=== PATIENT | female | born 1995 | race Caucasian/White ===

== ENCOUNTER 2022-11-02 10:16 | Inpatient (IN) | payer MEDICAID ==
[~2022-11-02] VITALS: Ht 154.9 cm; Wt 70.3 kg
[2022-11-02 10:38] VITALS: BP 123/72; PULSE 105; RESP 18; TEMP 98; O2SAT 99
[2022-11-02 10:55] VITALS: O2SAT 99
[2022-11-02] MEDS ORDERED: ACETAMINOPHEN EXTRA STRENGTH 500 MG TAB PO ONE (11:15)
[2022-11-02] MEDS ORDERED: NACL 0.9% 1,000 ML IV ONE (11:30)
[2022-11-02] MEDS ORDERED: ONDANSETRON 4 MG/2 ML VIAL IVP ONE (11:30)
[2022-11-02 11:37] LABS: BASOPHILS % (AUTO) 0.1 % (0.0-2.0); EOSINOPHILS % (AUTO) 0.8 % (0.0-4.0); HEMATOCRIT 32.8 % (36-48); HEMOGLOBIN 11.2 g/dL (12.0-16.0); LYMPHOCYTES # (AUTO) 1.3 K/uL (2.5-16.5); LYMPHOCYTES % (AUTO) 23.1 % (20.5-51.1); MEAN CORPUSCULAR HEMOGLOBIN 28 pg (27-31); MEAN CORPUSCULAR HGB CONC 34 g/dL (33-37); MEAN CORPUSCULAR VOLUME 82.5 fL (80-94); MONOCYTES # (AUTO) 0.4 K/uL (0.8-1.0); MONOCYTES % (AUTO) 7.7 % (1.7-9.3); NEUTROPHILS # (AUTO) 3.7 K/uL (1.8-7.7); NEUTROPHILS % (AUTO) 68.3 % (42.2-75.2); PLATELET COUNT (AUTO) 196 K/uL (140-450); RED BLOOD CELL COUNT(AUTO) 3.98 MIL/uL (4.20-5.40); RED CELL DISTRIBUTION WIDTH 14.9 % (11.6-13.7); WHITE BLOOD COUNT (AUTO) 5.4 K/uL (4.8-10.8)
[2022-11-02 12:50] VITALS: O2SAT 100
[2022-11-02] MEDS ORDERED: KETOROLAC 30 MG/ML VIAL IVP ONE (13:25)
[2022-11-02] MEDS ORDERED: MISOPROSTOL 200 MCG TAB PO ONE (14:40)
[2022-11-02 15:46] VITALS: O2SAT 96
[2022-11-02] MEDS: MIDODRINE 5 MG TAB PO SCH ×2 (16:36→19:40)
[2022-11-02] MEDS ORDERED: MORPHINE SULFATE 4 MG/ML SYR IVP PRN (17:00)
[2022-11-02] MEDS ORDERED: LORazepam 1 MG TAB PO PRN (17:00)
[2022-11-02] MEDS ORDERED: ONDANSETRON 4 MG/2 ML VIAL IVP PRN (17:00)
[2022-11-02] MEDS ORDERED: ACETAMINOPHEN 325 MG TAB PO PRN (17:00)
[2022-11-02] MEDS ORDERED: POTASSIUM CHLORIDE 10 MEQ TABER PO PRN (17:00)
[2022-11-02] MEDS ORDERED: ZOLPIDEM 5 MG TAB PO PRN (17:00)
[2022-11-02] MEDS ORDERED: MAG SULF 2000 MG/WATER PREMIX 50 ML IV PRN (17:00)
[2022-11-02] MEDS ORDERED: KCL 20 MEQ IN 100 mL PREMIX 200 ML IV PRN (17:00)
[2022-11-02] MEDS ORDERED: HYDROcodone/APAP 5/325 MG 1 TAB TAB PO PRN (17:00)
[2022-11-02] MEDS ORDERED: cefTRIAXone 1,000 MG VIAL ONE (17:15)
[2022-11-02] MEDS: NACL 0.9% 1,000 ML IV SCH (17:21)
[2022-11-02 20:50] VITALS: BP 97/30; PULSE 72; PULSE 86; RESP 20; TEMP 97.7; O2SAT 98
[2022-11-02 21:26] LABS: BILIRUBIN,URINE NEGATIVE (NEGATIVE); BLOOD, URINE 3+ (NEGATIVE); LEUKOCYTE ESTERASE ,URINE TRACE (NEGATIVE); NITRITE, URINE POSITIVE (NEGATIVE); PH,URINE 8.5 (5.0-9.0); PROTEIN,URINE 2+ (NEGATIVE); UGLUCOSE NEGATIVE (NEGATIVE)
[2022-11-02 21:41] LABS: APPEARANCE,URINE BLOODY (CLEAR); BACTERIA,URINE FEW /HPF (None Seen); COLOR,URINE RED (YELLOW); RBC,URINE 20-50 /HPF (0-5); SQUAMOUS EPITHELIAL CELL,UR 0-3 (FEW) /LPF (0-3 (FEW)); WBC,URINE 0-5 /HPF (0-5)
[2022-11-03] VITALS: BP 94/44; PULSE 59; PULSE 65; RESP 18; TEMP 96.8; O2SAT 98
[2022-11-03 04:00] VITALS: BP 98/46; PULSE 68; PULSE 71; RESP 18; TEMP 97; O2SAT 99
[2022-11-03 04:55] LABS: BASOPHILS % (AUTO) 0.2 % (0.0-2.0); EOSINOPHILS # (AUTO) 0.1 K/uL (0-0.4); EOSINOPHILS % (AUTO) 1.6 % (0.0-4.0); HEMATOCRIT 25.3 % (36-48); HEMOGLOBIN 8.7 g/dL (12.0-16.0); LYMPHOCYTES # (AUTO) 1.6 K/uL (2.5-16.5); LYMPHOCYTES % (AUTO) 33.7 % (20.5-51.1); MEAN CORPUSCULAR HEMOGLOBIN 28 pg (27-31); MEAN CORPUSCULAR HGB CONC 34 g/dL (33-37); MEAN CORPUSCULAR VOLUME 82.5 fL (80-94); MONOCYTES # (AUTO) 0.4 K/uL (0.8-1.0); MONOCYTES % (AUTO) 7.3 % (1.7-9.3); NEUTROPHILS # (AUTO) 2.8 K/uL (1.8-7.7); NEUTROPHILS % (AUTO) 57.2 % (42.2-75.2); PLATELET COUNT (AUTO) 152 K/uL (140-450); RED BLOOD CELL COUNT(AUTO) 3.07 MIL/uL (4.20-5.40); WHITE BLOOD COUNT (AUTO) 4.9 K/uL (4.8-10.8)
[2022-11-03 05:12] LABS: ANION GAP 10.8 (8-16); CALCIUM 7.6 mg/dL (8.5-10.1); CARBON DIOXIDE 23.1 mmol/L (21-32); CREATININE 0.5 mg/dL (0.6-1.3); POTASSIUM 3.9 mmol/L (3.5-5.1)
[2022-11-03] MEDS: NACL 0.9% 1,000 ML IV SCH ×2 (05:30→18:00)
[2022-11-03] MEDS: MIDODRINE 5 MG TAB PO SCH ×3 (06:32→19:36)
[2022-11-03 08:00] VITALS: BP 98/52; PULSE 64; PULSE 72; RESP 20; TEMP 97.5; O2SAT 100
[2022-11-03 12:00] VITALS: BP 102/48; PULSE 79; RESP 18; TEMP 97.6; O2SAT 99
[2022-11-03 16:00] VITALS: BP 96/46; PULSE 67; RESP 18; TEMP 98.3; O2SAT 100
[2022-11-03 20:00] VITALS: BP 122/61; PULSE 68; RESP 18; TEMP 98.9; O2SAT 99
[2022-11-04] MEDS: MISOPROSTOL 200 MCG TAB ONE ×2 (00:16→04:41)
[2022-11-04] MEDS: MISOPROSTOL 200 MCG TAB PO SCH ×6 (00:21→20:00)
[2022-11-04] MEDS: IBUPROFEN 400 MG TAB PO SCH ×6 (00:24→20:39)
[2022-11-04] MEDS: NACL 0.9% 1,000 ML IV SCH ×2 (01:42→19:00)
[2022-11-04 04:00] VITALS: BP 102/58; PULSE 75; RESP 18; TEMP 97.8; O2SAT 97
[2022-11-04 05:07] LABS: ANION GAP 10.3 (8-16); CARBON DIOXIDE 25.2 mmol/L (21-32); CREATININE 0.6 mg/dL (0.6-1.3); POTASSIUM 3.5 mmol/L (3.5-5.1)
[2022-11-04 05:10] LABS: BASOPHILS % (AUTO) 0.1 % (0.0-2.0); EOSINOPHILS # (AUTO) 0.1 K/uL (0-0.4); HEMATOCRIT 24.8 % (36-48); HEMOGLOBIN 8.5 g/dL (12.0-16.0); LYMPHOCYTES # (AUTO) 1.2 K/uL (2.5-16.5); LYMPHOCYTES % (AUTO) 21.5 % (20.5-51.1); MEAN CORPUSCULAR HEMOGLOBIN 28 pg (27-31); MEAN CORPUSCULAR HGB CONC 34 g/dL (33-37); MEAN CORPUSCULAR VOLUME 82.2 fL (80-94); MONOCYTES # (AUTO) 0.4 K/uL (0.8-1.0); MONOCYTES % (AUTO) 6.6 % (1.7-9.3); NEUTROPHILS # (AUTO) 3.9 K/uL (1.8-7.7); NEUTROPHILS % (AUTO) 70.8 % (42.2-75.2); PLATELET COUNT (AUTO) 154 K/uL (140-450); RED BLOOD CELL COUNT(AUTO) 3.02 MIL/uL (4.20-5.40); WHITE BLOOD COUNT (AUTO) 5.6 K/uL (4.8-10.8)
[2022-11-04] MEDS: MIDODRINE 5 MG TAB PO SCH ×3 (06:38→19:00)
[2022-11-04 08:00] VITALS: BP 97/45; PULSE 75; RESP 17; TEMP 97.2; O2SAT 98; O2SAT 99
[2022-11-04] MEDS ORDERED: MAG SULF 2000 MG/WATER PREMIX 50 ML IV SCH (10:00)
[2022-11-04] MEDS ORDERED: DESFLURANE 240 ML BTL INH ONE (13:18)
[2022-11-04] MEDS ORDERED: ONDANSETRON 4 MG/2 ML VIAL ONE (13:23)
[2022-11-04] MEDS ORDERED: DEXAMETHASONE 4 MG/ML VIAL ONE (13:23)
[2022-11-04] MEDS ORDERED: PROPOFOL 200 MG/20 ML VIAL IV ONE (13:23)
[2022-11-04] MEDS ORDERED: KETOROLAC 30 MG/ML VIAL ONE (13:23)
[2022-11-04] MEDS ORDERED: fentaNYL citrate 0.05 MG/ML VIAL ONE (13:30)
[2022-11-04] MEDS ORDERED: METHYLERGONOVINE 0.2 MG/ML AMP ONE (13:56)
[2022-11-04] MEDS ORDERED: ONDANSETRON 4 MG/2 ML VIAL IVP PRN (14:30)
[2022-11-04] MEDS ORDERED: NACL 0.9% 1,000 ML IV ONE (14:30)
[2022-11-04 14:37] LABS: BASOPHILS % (AUTO) 0.1 % (0.0-2.0); EOSINOPHILS % (AUTO) 0.4 % (0.0-4.0); LYMPHOCYTES # (AUTO) 1.5 K/uL (2.5-16.5); LYMPHOCYTES % (AUTO) 19.5 % (20.5-51.1); MEAN CORPUSCULAR HEMOGLOBIN 28 pg (27-31); MEAN CORPUSCULAR HGB CONC 34 g/dL (33-37); MEAN CORPUSCULAR VOLUME 83.8 fL (80-94); MONOCYTES # (AUTO) 0.4 K/uL (0.8-1.0); MONOCYTES % (AUTO) 4.6 % (1.7-9.3); NEUTROPHILS # (AUTO) 5.9 K/uL (1.8-7.7); NEUTROPHILS % (AUTO) 75.4 % (42.2-75.2); PLATELET COUNT (AUTO) 154 K/uL (140-450); RED BLOOD CELL COUNT(AUTO) 2.32 MIL/uL (4.20-5.40); WHITE BLOOD COUNT (AUTO) 7.8 K/uL (4.8-10.8)
[2022-11-04] MEDS: HYDROmorphone PFS 2 MG/ML SYR ONE ×4 (14:40→16:00)
[2022-11-04 14:55] LABS: HEMATOCRIT 19.5 % (36-48); HEMOGLOBIN 6.6 g/dL (12.0-16.0)
[2022-11-04 16:00] VITALS: BP 87/46; PULSE 98; RESP 16; TEMP 97.4; O2SAT 98
[2022-11-04 20:00] VITALS: BP 104/50; PULSE 100; PULSE 98; RESP 20; TEMP 98.4; O2SAT 100
[2022-11-05 01:55] LABS: BASOPHILS % (AUTO) 0.2 % (0.0-2.0); HEMATOCRIT 26.8 % (36-48); HEMOGLOBIN 9.2 g/dL (12.0-16.0); LYMPHOCYTES # (AUTO) 0.8 K/uL (2.5-16.5); LYMPHOCYTES % (AUTO) 9.3 % (20.5-51.1); MEAN CORPUSCULAR HEMOGLOBIN 30 pg (27-31); MEAN CORPUSCULAR HGB CONC 35 g/dL (33-37); MEAN CORPUSCULAR VOLUME 85.7 fL (80-94); MONOCYTES # (AUTO) 0.3 K/uL (0.8-1.0); MONOCYTES % (AUTO) 3.8 % (1.7-9.3); NEUTROPHILS # (AUTO) 7.3 K/uL (1.8-7.7); NEUTROPHILS % (AUTO) 86.7 % (42.2-75.2); PLATELET COUNT (AUTO) 206 K/uL (140-450); RED BLOOD CELL COUNT(AUTO) 3.12 MIL/uL (4.20-5.40); RED CELL DISTRIBUTION WIDTH 14.7 % (11.6-13.7); WHITE BLOOD COUNT (AUTO) 8.4 K/uL (4.8-10.8)
[2022-11-05] MEDS: MISOPROSTOL 200 MCG TAB PO SCH ×4 (04:16→13:25)
[2022-11-05] MEDS: IBUPROFEN 400 MG TAB PO SCH ×4 (04:16→13:24)
[2022-11-05 05:58] LABS: ANION GAP 10.6 (8-16); CARBON DIOXIDE 22.7 mmol/L (21-32); CREATININE 0.5 mg/dL (0.6-1.3); POTASSIUM 4.3 mmol/L (3.5-5.1)
[2022-11-05] MEDS: MIDODRINE 5 MG TAB PO SCH ×2 (06:46→13:23)
[2022-11-05] MEDS: NACL 0.9% 1,000 ML IV SCH ×2 (06:51→13:30)
[2022-11-05 08:00] VITALS: BP 98/41; PULSE 77; RESP 18; TEMP 98.6; O2SAT 97
[2022-11-05 09:03] LABS: BASOPHILS % (AUTO) 0.1 % (0.0-2.0); EOSINOPHILS % (AUTO) 0.2 % (0.0-4.0); HEMATOCRIT 22.2 % (36-48); HEMOGLOBIN 7.8 g/dL (12.0-16.0); LYMPHOCYTES # (AUTO) 1.1 K/uL (2.5-16.5); MEAN CORPUSCULAR HEMOGLOBIN 30 pg (27-31); MEAN CORPUSCULAR HGB CONC 35 g/dL (33-37); MEAN CORPUSCULAR VOLUME 84.1 fL (80-94); MONOCYTES # (AUTO) 0.5 K/uL (0.8-1.0); MONOCYTES % (AUTO) 6.6 % (1.7-9.3); NEUTROPHILS # (AUTO) 5.4 K/uL (1.8-7.7); NEUTROPHILS % (AUTO) 77.1 % (42.2-75.2); PLATELET COUNT (AUTO) 191 K/uL (140-450); RED BLOOD CELL COUNT(AUTO) 2.64 MIL/uL (4.20-5.40); RED CELL DISTRIBUTION WIDTH 14.7 % (11.6-13.7)
[2022-11-05] MEDS ORDERED: SIMETHICONE 80 MG TAB.CHEW PO PRN (15:25)
[2022-11-05 15:47] VITALS: BP 109/70; PULSE 81; RESP 18; TEMP 98.5
== END 2022-11-05 16:30 | disposition home or self-care (01) | DRG 543 ==
LOC: MED 10:16 → OBSVTOIN 16:59 → MMU 16:59 → MTU 18:45 → MMU 11-04 23:55
PROVIDERS: ADMIT Internal Medicine; ATTEND Internal Medicine
PROC: 30233N1 Transfusion of Nonautologous Red Blood Cells into Peripheral Vein, Percutaneous Approach (ICD-10-PCS; 2022-11-04)
PROC: 10D17ZZ Extraction of Products of Conception, Retained, Via Natural or Artificial Opening (ICD-10-PCS; principal; 2022-11-04 13:00)
DX: O03.4 Incomplete spontaneous abortion without complication (principal); D62 Acute posthemorrhagic anemia; Z3A.01 Less than 8 weeks gestation of pregnancy; Z20.822 Contact with and (suspected) exposure to COVID-19; Z88.5 Allergy status to narcotic agent; E86.1 Hypovolemia
CPT/HCPCS: 36415; 36430; 76817; 76856; 80048; 81001; 83735; 84702; 85025; 86886; 86900; 86901; 86920; 87040; 87081; 88305; 96361; 96374; 96375; 99291; J0696; J1100; J1170; J1885; J2210; J2405; J2704; J3010; J3475; J7030; J7060; P9016; Q0092